=== PATIENT | male | born 1995 | race Caucasian/White ===

== ENCOUNTER 2017-02-06 20:29 | Emergency (ER) | payer OTHER, BC ==
[~2017-02-06] VITALS: Ht 182.9 cm; Wt 79.5 kg
[2017-02-06] MEDS ORDERED: NORCO 5/325MG TABLET (BULK FOR ED) PO ONE (22:00)
[2017-02-06] MEDS ORDERED: AUGMENTIN 875 MG TAB PO ONE (22:00)
[2017-02-06] MEDS ORDERED: AUGM875T28 PO (22:02)
[2017-02-06 22:19] VITALS: BP 134/85
== END 2017-02-06 22:54 | disposition home or self-care (01) ==
LOC: M ED 20:29
DX: S61.202A Unspecified open wound of right middle finger without damage to nail, initial encounter (principal); W23.0XXA Caught, crushed, jammed, or pinched between moving objects, initial encounter; Y92.9 Unspecified place or not applicable; Y93.9 Activity, unspecified; Y99.0 Civilian activity done for income or pay

== ENCOUNTER 2017-02-10 13:26 | Emergency (ER) | payer OTHER, BC ==
[~2017-02-10] VITALS: Ht 182.9 cm; Wt 78.1 kg
[~2017-02-10 13:26] MED LIST: AUGM875T28 PO
[2017-02-10 13:27] VITALS: BP 122/64
--- NOTE | 2017-02-10 14:21 | REP ---
Right middle finger four views: Mineralization joint spaces are normal. There is no fracture or dislocation. I suspect there is soft tissue injury at the distal tip. Otherwise, negative right middle finger. Signed by Ghassan Cabral MD 02/10/2017 02:13 P
[2017-02-10] MEDS ORDERED: AUGM875T28 PO (15:07)
== END 2017-02-10 15:28 | disposition home or self-care (01) ==
LOC: M ED 13:26
DX: Z51.89 Encounter for other specified aftercare (principal)

== ENCOUNTER → 2018-03-03 | Outpatient (CLI) | payer BC, OTHER | LOC: M WUC 10:22 | DX: M25.571 Pain in right ankle and joints of right foot (principal) ==

== ENCOUNTER → 2019-02-04 | Outpatient (CLI) | payer BC, OTHER ==
[2019-02-04 19:37] LABS: BASO # 0.1 10^3/uL (0.0-0.2); BASO % 1.2 % (0.0-1.0); EOS # 0.5 10^3/uL (0.0-0.50); EOS % 5.5 % (0.0-3.0); LYMPH # 3.7 10^3/uL (1.5-6.5); LYMPH % 45.5 % (24.0-44.0); MEAN CORPUSCULAR HEMOGLOBIN 31.8 pg (27.0-33.0); MEAN CORPUSCULAR HGB CONC 34.9 g/dl (32.0-36.5); MEAN CORPUSCULAR VOLUME 91.1 fl (80.0-96.0); MONO # 0.8 10^3/uL (0.0-0.8); MONO % 9.3 % (0.0-5.0); NEUTROPHILS # 3.1 10^3/uL (1.8-7.7); NEUTROPHILS % 38.3 % (36.0-66.0); PLATELET COUNT, AUTOMATED 250 10^3/uL (150-450); RED BLOOD COUNT 5.06 10^6/uL (4.30-6.10); WHITE BLOOD COUNT 8.2 10^3/uL (4.0-10.0)
[2019-02-04 19:46] LABS: ALBUMIN 4.3 GM/DL (3.2-5.2); ALT/SGPT 40 U/L (12-78); BILIRUBIN,TOTAL 0.4 MG/DL (0.2-1.0); BLOOD UREA NITROGEN 19 MG/DL (7-18); CALCIUM LEVEL 9.2 MG/DL (8.5-10.1); CARBON DIOXIDE LEVEL 31 MEQ/L (21-32); CHLORIDE LEVEL 105 MEQ/L (98-107); CREATININE FOR GFR 1.04 MG/DL (0.70-1.30); GLOMERULAR FILTRATION RATE > 60.0 (>60); GLUCOSE, FASTING 90 MG/DL (70-100); HEMATOCRIT 46.1 % (42.0-52.0); HEMOGLOBIN 16.1 g/dl (13.5-17.5); POTASSIUM SERUM 4.1 MEQ/L (3.5-5.1); SODIUM LEVEL 140 MEQ/L (136-145)
== END ==
LOC: M WUC 16:59
PROVIDERS: ATTEND Nurse Practitioner Family
DX: R53.83 Other fatigue (principal)

== ENCOUNTER → 2021-01-20 | Outpatient (REF) | payer BC, OTHER | LOC: M LAB REF 11:22 | PROVIDERS: ATTEND Physician Assistant | DX: J02.9 Acute pharyngitis, unspecified (principal) ==

== ENCOUNTER → 2021-06-09 | Outpatient (REF) | payer BC, OTHER ==
[2021-06-09 17:41] LABS: FOLATE 19.3 NG/ML
== END ==
LOC: M LAB REF 16:21
PROVIDERS: ATTEND Registered Nurse
DX: R53.83 Other fatigue (principal)

== ENCOUNTER → 2021-11-24 | Outpatient (REF) | payer BC, OTHER ==
[2021-11-24 16:56] LABS: IRON (FE) 186 UG/DL (65-175); RHEUMATOID FACTOR QUANT < 10.0 IU/ML (<15.0)
[2021-11-24 17:07] LABS: FOLATE > 24.0 NG/ML; VITAMIN B12 LEVEL 1624 PG/ML
[2021-11-28 15:09] LABS: ANTI DOUBLE STRAND-DNA AB <1 IU/mL (0-9); ANTINUCLEAR ANTIBODIES DIRECT Positive (Negative); EBV VIRAL CAPSID AG IgM <36.0 U/mL (0.0-35.9); RNP ANTIBODIES <0.2 AI (0.0-0.9); SJOGREN'S ANTI SS-A 0.5 AI (0.0-0.9); SJOGREN'S ANTI SS-B <0.2 AI (0.0-0.9); SMITH ANTIBODIES <0.2 AI (0.0-0.9)
== END ==
LOC: M LAB REF 15:53
PROVIDERS: ATTEND Registered Nurse
DX: R53.83 Other fatigue (principal); M79.10 Myalgia, unspecified site

== ENCOUNTER → 2022-01-25 | Outpatient (CLI) | payer BC, OTHER ==
[2022-01-25 13:25] LABS: GC DNA AMPLIFICATION NEGATIVE (NEGATIVE)
== END ==
LOC: M RAD 09:24
PROVIDERS: ATTEND Physician Assistant
DX: N50.82 Scrotal pain (principal)

== ENCOUNTER → 2022-02-01 | Outpatient (REF) | payer BC, OTHER ==
[2022-02-01 14:12] LABS: APPEARANCE, URINE CLEAR (CLEAR); BACTERIA, URINE AUTO NEGATIVE (NEGATIVE); BILIRUBIN, URINE AUTO NEGATIVE (NEGATIVE); BLOOD, URINE BLOOD NEGATIVE (NEGATIVE); COLOR, URINE YELLOW (YELLOW); GLUCOSE, URINE (UA) AUTO NEGATIVE (NEGATIVE); KETONE, URINE AUTO NEGATIVE (NEGATIVE); LEUKOCYTE ESTERASE, URINE AUTO NEGATIVE (NEGATIVE); NITRITE, URINE AUTO NEGATIVE (NEGATIVE); PROTEIN, URINE AUTO NEGATIVE (NEGATIVE); RBC, URINE AUTO 1 /HPF (0-3); SQUAMOUS EPITHELIAL CELL UR AU 0 /HPF (0-6); UROBILINOGEN, URINE AUTO 0.2 mg/dL (0.0-2.0); WBC, URINE AUTO 1 /HPF (0-3)
[2022-02-01 15:43] LABS: GC DNA AMPLIFICATION NEGATIVE (NEGATIVE)
== END ==
LOC: M SMT 12:51
PROVIDERS: ATTEND Urology
DX: A74.9 Chlamydial infection, unspecified (principal); R82.2 Biliuria

== ENCOUNTER → 2022-02-01 | Outpatient (REF) | payer BC, OTHER ==
[2022-02-06 01:06] LABS: ANA (HEP2) Negative (.); CYCLIC CITRULLINATED PEPTIDE 9 units (0-19)
== END ==
LOC: M LAB REF 11:46
PROVIDERS: ATTEND Registered Nurse
DX: M79.10 Myalgia, unspecified site (principal); R53.83 Other fatigue

== ENCOUNTER → 2022-09-27 | Outpatient (CLI) | payer BC, OTHER | LOC: M WUC 10:30 | PROVIDERS: ATTEND Physician Assistant Medical | DX: M25.561 Pain in right knee (principal) ==